=== PATIENT | female | born 1980 | race African-American/Black ===

== ENCOUNTER 2017-12-31 09:14 | Emergency (ER) | payer SELFPAY ==
[~2017-12-31] VITALS: Ht 170.2 cm; Wt 109.0 kg
[~2017-12-31 09:14] MED LIST: DOXY100C PO; OXYC1TAB35 PO
[2017-12-31 09:18] VITALS: BP 120/60; PULSE 86; RESP 16; TEMP 99; O2SAT 99
--- NOTE | 2017-12-31 09:43 | PD ---
HPI Chief Complaint: Musculoskeletal Complaint Time Seen by Provider: 09:28 Travel History International Travel<30 days: No Contact w/Intl Traveler<30days: No Traveled to known affect area: No History of Present Illness HPI Patient is a 37-year-old female presenting to the emergency department for evaluation of right hand and wrist pain. Patient states it started in her hand 3 weeks ago, progressively getting worse in her wrist, forearm up to her elbow. Patient denies any injury or trauma. She states she feels stiff her hand is swollen. He has been taking acetaminophen and ibuprofen intermittently for pain. She last took ibuprofen yesterday morning, she took 400 mg. She states that this does not alleviate her pain. Patient denies any significant past medical history. She denies any fevers, chills, weakness, numbness. She states the pain is cramping, she describes it as a 5 out of 10, constant, she feels it is worse at night when she tries to relax. 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 Presenting in no acute distress. SKIN: Warm and dry. HEAD: Atraumatic. Normocephalic. EYES: Pupils equal and round. No scleral icterus. No injection or drainage. ENT: No nasal bleeding or discharge. Mucous membranes pink and moist. NECK: Trachea midline. No JVD. CARDIOVASCULAR: Regular rate and rhythm. RESPIRATORY: No accessory muscle use. Clear to auscultation. Breath sounds equal bilaterally. GASTROINTESTINAL: Abdomen soft, non-tender, nondistended. Hepatic and splenic margins not palpable. MUSCULOSKELETAL: Extremities without clubbing, cyanosis, or edema. No obvious deformities. 2+ radial pulse, brisk less than 3 second capillary refill. NEUROLOGICAL: Awake and alert. No obvious cranial nerve deficits. Motor grossly within normal limits. Five out of 5 muscle strength in the arms and legs. Normal speech. PSYCHIATRIC: Appropriate mood and affect; insight and judgment normal. Data Data Last Documented VS Vital Signs Date Time Temp Pulse Resp B/P (MAP) Pulse Ox O2 Delivery O2 Flow Rate FiO2 12/31/17 09:18 99.0 86 16 120/60 (80) 99 Orders Orders Hand, Limited (2vws) (12/31/17 ) Dexamethasone Inj (Decadron Inj) (12/31/17 09:45) Ibuprofen (Motrin) (12/31/17 09:45) MDM Medical Decision Making Medical Screen Exam Complete: Yes Emergency Medical Condition: Yes Interpretation(s) Last Impressions Hand X-Ray 12/31/17 0000 Signed Impressions: CONCLUSION: No evidence of recent bony injury. Vital Signs Date Time Temp Pulse Resp B/P (MAP) Pulse Ox O2 Delivery O2 Flow Rate FiO2 12/31/17 09:18 99.0 86 16 120/60 (80) 99 Differential Diagnosis Arthritis versus carpal tunnel syndrome versus muscle strain versus muscle spasms versus other Narrative Course Patient is a 37-year-old female presenting to the emergency department for evaluation of right hand, wrist and elbow pain. Patient's vital signs are stable, exam appears most consistent with overuse injury. Patient was given dexamethasone and ibuprofen in the emergency department. X-rays negative for acute abnormality. Patient is encouraged to continue gentle range of motion exercises, apply warm heat to affected area, avoid exacerbating activities. Patient was encouraged to take medications as needed and as directed for pain. Patient verbalized understanding of instructions. Patient stable for discharge. Diagnosis Primary Impression: Overuse injury Referrals: Primary Care Physician 3 days Patient Instructions: General Instructions, Muscle Cramp (GEN), Muscle Strain ( ED) Additional Instructions: Follow-up with your primary doctor Continue gentle range of motion exercises, apply warm heat to affected area, avoid exacerbating activities Return to emergency department for any new or worsening symptoms Take medications as needed as directed for pain Med/Other Pt SpecificInfo: Prescription(s) given Scripts Cyclobenzaprine (Flexeril) 5 Mg Tab 5 MG PO TID Y for MUSCLE SPASM, #30 TAB 0 Refills Prov: Nery Cruz 12/31/17 Ibuprofen (Ibuprofen) 800 Mg Tab 800 MG PO Q6HR Y for PAIN, #40 TAB 0 Refills Prov: Nery Cruz 12/31/17 Disposition: 01 DISCHARGE HOME Condition: Stable Nery Cruz Dec 31, 2017 09:43
[2017-12-31] MEDS ORDERED: DEXAMETHASONE SOD PHOS 20 MG/5 ML VIAL IM ONE (09:45)
[2017-12-31] MEDS ORDERED: IBUPROFEN 800 MG TAB PO ONE (09:45)
--- NOTE | 2017-12-31 10:21 | RADRPT ---
EXAM DATE: 12/31/2017 10:17 AM EDT AGE/SEX: 37 years / Female INDICATIONS: Right distal hand swelling for several weeks. CLINICAL DATA: This is the patient's initial encounter. Patient reports that signs and symptoms have been present for 2 weeks and indicates a pain score of 3/10. MEDICAL/SURGICAL HISTORY: None. None. COMPARISON: No prior exams available for comparison. FINDINGS: Bony structures are intact and in normal alignment. Osseous density is normal. Soft tissues are unre markable. No radiopaque foreign bodies seen. CONCLUSION: No evidence of recent bony injury. Electronically signed by: Melvin Coronel MD 12/31/2017 10:20 AM EDT
[2017-12-31] MEDS ORDERED: CYCL5TAB PO (10:35)
[2017-12-31] MEDS ORDERED: IBUP1TAB7 PO (10:35)
== END 2017-12-31 10:47 | disposition home or self-care (01) ==
LOC: NEPD 09:14
DX: M70.821 Other soft tissue disorders related to use, overuse and pressure, right upper arm (principal); Y93.9 Activity, unspecified
CPT/HCPCS: 73120; 96372; 99283; J1100

== ENCOUNTER 2018-01-02 15:18 | Emergency (ER) | payer SELFPAY ==
[~2018-01-02 15:18] MED LIST changes: +CYCL5TAB PO; +IBUP1TAB7 PO
[2018-01-02 15:47] VITALS: BP 117/56; PULSE 87; RESP 17; TEMP 97.7; O2SAT 100
--- NOTE | 2018-01-02 16:15 | PD ---
HPI Chief Complaint: Medical Clearance Time Seen by Provider: 16:05 Travel History International Travel<30 days: No Contact w/Intl Traveler<30days: No Traveled to known affect area: No History of Present Illness HPI 37-year-old female presents to the emergency department requesting a work release to put her on light duty. She was seen here on Saturday and evaluated for right hand pain. Her work told her she needed to have a work note to put her on light duty or saying that she could perform her duties at work. She says the medications that she was prescribed on Saturday are helping with her pain. She has no other medical complaints. Symptoms are mild in severity. No known aggravating or relieving factors. Onset unknown. Duration unknown. No primary care provider. No known allergies. Denies significant past medical history. Has no other medical complaints. 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 HEAD: Atraumatic. Normocephalic. EYES: Pupils equal and round. No scleral icterus. No injection or drainage. ENT: Mucosa pink and moist. Airway patent. NECK: Trachea midline. CARDIOVASCULAR: Regular rate. RESPIRATORY: No accessory muscle use. GASTROINTESTINAL: Obese. MUSCULOSKELETAL: No obvious deformities. No clubbing. No cyanosis. No edema. NEUROLOGICAL: Awake and alert. Oriented 3. No obvious cranial nerve deficits. Motor grossly within normal limits. Normal speech. PSYCHIATRIC: Appropriate mood and affect; insight and judgment normal. Data Data Last Documented VS Vital Signs Date Time Temp Pulse Resp B/P (MAP) Pulse Ox O2 Delivery O2 Flow Rate FiO2 01/02/18 15:47 97.7 87 17 117/56 (76) 100 MDM Medical Screen Exam Complete: Yes Emergency Medical Condition: No Differential Diagnosis work release note Narrative Course 37-year-old female presents requesting a work release note. Vital signs are stable and the patient is stable for outpatient follow-up and treatment. The patient has no urgent or emergent medical complaints. There is no emergent or urgent medical need at this time. I instructed the patient to follow up with their primary care provider. A medical screening exam was performed: At the time of evaluation the presenting medical condition was determined not to be of an emergent nature. The patient was given the option of receiving additional care, but declined. Patient was given options for additional community resources from which to obtain care. The Patient Has Been advised to seek medical attention for their presenting complaint. The patient has been advised to return to the ER at any time if an emergent condition develops. Primary Impression: Encounter for medical screening examination Condition: Stable Kari Romero Jan 02, 2018 16:15
== END 2018-01-02 16:17 | disposition left against medical advice (07) ==
LOC: NEPK 15:18
DX: M79.641 Pain in right hand (principal)
CPT/HCPCS: 99281